=== PATIENT | male | born 1995 | race Two or more races ===

== ENCOUNTER 2019-03-06 13:03 | Emergency (ER) | payer OTHER ==
[~2019-03-06] VITALS: Ht 180.3 cm; Wt 90.0 kg
[2019-03-06 14:04] LABS: BASOPHILS % (AUTO) 0.7 % (0-1); EOSINOPHILS # (AUTO) 0.2 X10'3 (0-0.9); HEMOGLOBIN 15.4 g/dl (14.0-17.9); LYMPHOCYTES # (AUTO) 1.2 X10'3 (1.1-4.8); LYMPHOCYTES % (AUTO) 21.5 % (21-51); MEAN CORPUSCULAR HEMOGLOBIN 29.4 PG (27.0-31.0); MEAN CORPUSCULAR HGB CONC 35.1 g/dL (33.0-36.5); MEAN CORPUSCULAR VOLUME 83.9 FL (78-98); MEAN PLATELET VOLUME 8.1 FL (7.4-10.4); MONOCYTES # (AUTO) 0.5 X10'3 (0-0.9); MONOCYTES % (AUTO) 8.9 % (2-12); NEUTROPHILS # (AUTO) 3.8 X10'3 (1.8-7.7); NEUTROPHILS % (AUTO) 65.9 % (42-75); PLATELET COUNT 313 X10'3 (140-440); RED BLOOD COUNT 5.24 X10'6 (4.70-6.10); WHITE BLOOD COUNT 5.8 X10'3 (4.5-11.0)
[2019-03-06 14:17] LABS: ALANINE AMINOTRANSFERASE 49 U/L (12-78); ALBUMIN 4.2 G/DL (3.4-5.0); ALBUMIN/GLOBULIN RATIO 1.1 (1.1-1.5); ALKALINE PHOSPHATASE 59 IU/L (46-116); ANION GAP 9 (8-16); ASPARTATE AMINO TRANSFERASE 52 U/L (10-37); BILIRUBIN,TOTAL 0.7 MG/DL (0.1-1.0); BLOOD UREA NITROGEN 13 MG/DL (7-18); BUN/CREATININE RATIO 14.6 (5.4-32.0); CALCIUM 8.8 MG/DL (8.5-10.1); CHLORIDE 106 MMOL/L (99-107); CREATININE 0.89 MG/DL (0.60-1.10); GLUCOSE 95 MG/DL (70-104); POTASSIUM 4.2 MMOL/L (3.5-5.1); SODIUM 142 MMOL/L (135-145); TOTAL CARBON DIOXIDE 27.4 MMOL/L (24-32); TOTAL PROTEIN 8.1 G/DL (6.4-8.2); eGFR > 90 ML/MIN
[2019-03-06] MEDS ORDERED: PRED20TA PO (14:25)
[2019-03-06] MEDS ORDERED: ALBU18HF2 INH (14:25)
[2019-03-06] MEDS ORDERED: DOXY100C43 PO (14:25)
[2019-03-06 15:30] VITALS: BP 137/72
== END 2019-03-06 15:30 | disposition home or self-care (01) ==
LOC: ER 13:04
DX: J20.9 Acute bronchitis, unspecified (principal); Z79.899 Other long term (current) drug therapy
CPT/HCPCS: 36415; 71046; 80053; 83605; 85025; 87040; 99284

== ENCOUNTER 2020-03-23 19:19 | Emergency (ER) | payer OTHER ==
[~2020-03-23] VITALS: Ht 180.3 cm; Wt 100.0 kg
[~2020-03-23 19:19] MED LIST: ALBU18HF2 INH
[2020-03-23 19:24] VITALS: BP 147/91
[2020-03-23] MEDS ORDERED: BENZ-16 PO (20:57)
[2020-03-23] MEDS ORDERED: ONDA4TAB6 PO (20:57)
[2020-03-23] MEDS ORDERED: DICY10CA88 PO (20:57)
== END 2020-03-23 21:16 | disposition home or self-care (01) ==
LOC: ER 19:19
DX: R11.2 Nausea with vomiting, unspecified (principal); Z20.828 Contact with and (suspected) exposure to other viral communicable diseases; Z87.891 Personal history of nicotine dependence; Z79.899 Other long term (current) drug therapy
CPT/HCPCS: 36415; 71045; 87502; 87503; 87635; 93005; 99285